=== PATIENT | female | born 1930 | race Caucasian/White ===

== ENCOUNTER → 2017-03-03 | Outpatient (CLI) | payer MEDICARE | LOC: HEART 5 13:30 | DX: R21 Rash and other nonspecific skin eruption (principal) ==

== ENCOUNTER 2020-07-26 13:56 | Emergency (ER) | payer MEDICARE ==
[~2020-07-26 13:56] MED LIST: ALDACTONE 25MG25 MG PO; ASPIRIN 325MG325 MG PO; ASPIRIN EC81 MG PO; COREG12.5 MG PO; LASIX20 MG PO; OMNICEF 300 MG300 MG PO; SYNTHROID88 MCG PO; ZITHROMAX250 MG PO
[2020-07-26 15:17] LABS: HEMOGLOBIN 14.7 gm/dl (12.3-15.3); RED BLOOD COUNT 4.76 M/UL (4.00-5.10); WHITE BLOOD COUNT 9.9 K/UL (4.5-11.0)
== END 2020-07-26 17:14 | disposition home or self-care (01) ==
LOC: ER1 13:56
PROVIDERS: Preventive Medicine Occupational Medicine
DX: N18.9 Chronic kidney disease, unspecified (principal); F03.90 Unspecified dementia, unspecified severity, without behavioral disturbance, psychotic disturbance, mood disturbance, and anxiety; I50.9 Heart failure, unspecified; I25.10 Atherosclerotic heart disease of native coronary artery without angina pectoris
CPT/HCPCS: 36415; 71045; 80053; 81001; 83880; 85025; 87077; 87086; 87186; 93005; 93970; 99285; J7030

== ENCOUNTER 2020-08-29 13:58 | Observation (INO) | payer MEDICARE ==
[~2020-08-29] VITALS: Ht 152.4 cm; Wt 74.8 kg
[2020-08-29 15:01] LABS: HEMOGLOBIN 13.5 gm/dl (12.3-15.3); RED BLOOD COUNT 4.44 M/UL (4.00-5.10); WHITE BLOOD COUNT 7.4 K/UL (4.5-11.0)
[2020-08-30 03:14] LABS: HEMOGLOBIN 11.9 gm/dl (12.3-15.3); RED BLOOD COUNT 4.01 M/UL (4.00-5.10); WHITE BLOOD COUNT 6.5 K/UL (4.5-11.0)
[2020-08-31] MEDS ORDERED: CEPHALEXIN250 MG PO (12:36)
== END 2020-08-31 12:35 | disposition home or self-care (01) ==
LOC: ER1 13:58 → MED SURG 4 17:21 → CDU 17:21 → MED SURG 4 17:21
PROVIDERS: Physician Assistant Medical; ADMIT Internal Medicine
DX: L03.116 Cellulitis of left lower limb (principal); R53.2 Functional quadriplegia; N18.30 Chronic kidney disease, stage 3 unspecified; I50.22 Chronic systolic (congestive) heart failure; E03.9 Hypothyroidism, unspecified; F03.90 Unspecified dementia, unspecified severity, without behavioral disturbance, psychotic disturbance, mood disturbance, and anxiety; I48.0 Paroxysmal atrial fibrillation; I44.7 Left bundle-branch block, unspecified; I25.2 Old myocardial infarction; Z79.82 Long term (current) use of aspirin; Z79.899 Other long term (current) drug therapy; Z85.828 Personal history of other malignant neoplasm of skin; Z20.822 Contact with and (suspected) exposure to COVID-19
CPT/HCPCS: 36415; 51701; 71045; 72128; 72131; 73590; 73600; 73620; 80048; 80053; 81001; 83605; 83735; 85025; 85027; 85652; 86140; 87077; 87086; 87186; 87635; 96365; 96366; 96374; 97162; 97166; 97530-GP-CQ; 99284; G0378; J3370; J7050; U0002

== ENCOUNTER 2021-10-09 09:28 | Emergency (ER) | payer MEDICARE ==
[~2021-10-09 09:28] MED LIST changes: +CEPHALEXIN250 MG PO
[2021-10-09 10:44] LABS: HEMOGLOBIN 13.4 gm/dl (12.3-15.3); RED BLOOD COUNT 4.54 M/UL (4.00-5.10); WHITE BLOOD COUNT 8.7 K/UL (4.5-11.0)
[2021-10-09] MEDS ORDERED: CEPHALEXIN500 M1 PO (12:00)
== END 2021-10-09 12:33 | disposition home or self-care (01) ==
LOC: ER1 09:28
PROVIDERS: Emergency Medicine
DX: N39.0 Urinary tract infection, site not specified (principal); I10 Essential (primary) hypertension; E07.9 Disorder of thyroid, unspecified
CPT/HCPCS: 70450; 71045; 72100; 72220; 80053; 81001; 83880; 84484; 85025; 86140; 93005; 99284